=== PATIENT | female | born 2000 | race Caucasian/White ===

== ENCOUNTER 2022-06-09 10:09 | Emergency (ER) | payer MEDICAID | END 2022-06-09 14:25 | disposition home or self-care (01) | LOC: JD.ED 10:09 | DX: O20.9 Hemorrhage in early pregnancy, unspecified (principal); O99.332 Smoking (tobacco) complicating pregnancy, second trimester; F17.210 Nicotine dependence, cigarettes, uncomplicated; Z3A.17 17 weeks gestation of pregnancy; Z88.5 Allergy status to narcotic agent; Z86.16 Personal history of COVID-19 | CPT/HCPCS: 36415; 76815; 76815-26; 84702; 85025; 86900; 86901; 99283; 99284 ==

== ENCOUNTER 2022-11-12 07:25 | Inpatient (IN) | payer MEDICAID ==
[~2022-11-12 07:25] MED LIST: Bupivacaine 0.25% 10 ML SDV ONE
[2022-11-12] MEDS ORDERED: Ondansetron 4 MG/2 ML SDV IVPUSH PRN (07:56)
[2022-11-12] MEDS ORDERED: Oxytocin/Lactated Ringers 10 UNIT/1,000 ML BAG IV SCH (08:00)
[2022-11-12] MEDS: Lactated Ringers 1,000 ML IV SCH ×3 (09:00→16:32)
[2022-11-12] MEDS ORDERED: Sodium Chloride 0.9% 10 ML Syringe FLUSH SCH (09:00)
[2022-11-12] MEDS ORDERED: Bupivacaine/fentaNYL/NS 100 ML Bag EPIDUR PRN (09:05)
[2022-11-12] MEDS ORDERED: ePHEDrine 50 MG/ML SDV IVPUSH PRN (09:05)
[2022-11-12] MEDS ORDERED: diphenhydrAMINE 50 MG/ML SDV IVPUSH PRN (09:05)
[2022-11-12] MEDS ORDERED: fentaNYL 100 MCG/2 ML SDV EPIDUR PRN (09:05)
[2022-11-12] MEDS ORDERED: Docusate Sodium 100 MG Cap PO PRN (18:46)
[2022-11-12] MEDS ORDERED: Benzocaine/Menthol 20%-0.5% Spray 78 GM Cannister TOP PRN (18:46)
[2022-11-12] MEDS ORDERED: Witch Hazel Medicated Pads 40/Jar TOP PRN (18:46)
[2022-11-13] MEDS: Ibuprofen 600 MG Tab PO PRN ×2 (06:31→12:29)
[2022-11-13] MEDS: Acetaminophen 325 MG Tab PO PRN ×2 (12:30→20:49)
[2022-11-14] MEDS: Acetaminophen 325 MG Tab PO PRN (06:49)
== END 2022-11-14 14:38 | disposition home or self-care (01) | DRG 807 ==
LOC: JD.OBCHECK 07:25 → JD.OB 09:02 → OBSVTOIN 17:49 → JD.OB 17:49
PROVIDERS: ADMIT Obstetrics & Gynecology; ATTEND Obstetrics & Gynecology
PROC: 10E0XZZ Delivery of Products of Conception, External Approach (ICD-10-PCS; principal; 2022-11-12)
PROC: 0KQM0ZZ Repair Perineum Muscle, Open Approach (ICD-10-PCS; 2022-11-12)
PROC: 10907ZC Drainage of Amniotic Fluid, Therapeutic from Products of Conception, Via Natural or Artificial Opening (ICD-10-PCS; 2022-11-12)
PROC: 3E0R3BZ Introduction of Anesthetic Agent into Spinal Canal, Percutaneous Approach (ICD-10-PCS; 2022-11-12)
PROC: 00HU33Z Insertion of Infusion Device into Spinal Canal, Percutaneous Approach (ICD-10-PCS; 2022-11-12)
DX: O99.334 Smoking (tobacco) complicating childbirth (principal); Z37.0 Single live birth; Z3A.39 39 weeks gestation of pregnancy; F17.200 Nicotine dependence, unspecified, uncomplicated; Z86.16 Personal history of COVID-19; O77.0 Labor and delivery complicated by meconium in amniotic fluid; O70.1 Second degree perineal laceration during delivery; Z88.5 Allergy status to narcotic agent; Z88.2 Allergy status to sulfonamides; Z90.49 Acquired absence of other specified parts of digestive tract
CPT/HCPCS: 36415; 51702; 59025; 59409; 85025; 85027; 86592; A9270-GY; J2590; J3010; J3490; J7120

== ENCOUNTER 2025-08-17 07:00 | Inpatient (IN) | payer MEDICAID ==
[2025-08-17] MEDS ORDERED: Ondansetron 4 MG/2 ML SDV IVPUSH PRN (07:12)
[2025-08-17] MEDS ORDERED: Nalbuphine 10 MG/1 ML Vial IVPUSH PRN (07:12)
[2025-08-17] MEDS ORDERED: Oxytocin/0.9 % Sodium Chloride 30 UNIT/500 ML BAG IV SCH ×2 (07:15→17:54)
[2025-08-17 07:48] LABS: BASOPHILS ABSOLUTE AUTO 0.0 K/mm3 (0.0-0.2); BASOPHILS PERCENT AUTO 0.4 % (0.0-1.0); EOSINOPHILS ABSOLUTE AUTO 0.1 K/mm3 (0.0-0.4); EOSINOPHILS PERCENT AUTO 1.0 % (0.0-6.0); IMMATURE GRAN ABSOLUTE AUTO 0.09 K/mm3 (0.00-0.05); IMMATURE GRAN PERCENT AUTO 0.9 % (0.0-0.4); LYMPHOCYTES ABSOLUTE AUTO 2.1 K/mm3 (1.0-4.8); LYMPHOCYTES PERCENT AUTO 20.5 % (24.0-44.0); MEAN PLATELET VOLUME 9.1 fl (9.4-12.3); MONOCYTES ABSOLUTE AUTO 0.9 K/mm3 (0.0-0.8); MONOCYTES PERCENT AUTO 8.5 % (0.0-8.0); NEUTROPHILS ABSOLUTE AUTO 7.1 K/mm3 (1.8-7.7); NEUTROPHILS PERCENT AUTO 68.7 % (41.0-71.0); NRBC ABSOLUTE 0.00 (0.00-0.02); NRBC PERCENT 0.0 % (0.0-0.2); PLATELET COUNT,PLT 220 K/mm3 (150-400); RED BLOOD CELL COUNT 4.31 M/mm3 (4.10-5.30); WHITE BLOOD CELL COUNT,WBC 10.31 K/mm3 (3.9-11.3)
[2025-08-17] MEDS: Lactated Ringers 1,000 ML IV SCH (08:36)
[2025-08-17] MEDS: Oxytocin/0.9 % Sodium Chloride 30 UNIT/500 ML BAG IV SCH (08:38)
[2025-08-17] MEDS ORDERED: fentaNYL 100 MCG/2 ML SDV EPIDUR PRN (13:53)
[2025-08-17] MEDS ORDERED: diphenhydrAMINE 50 MG/ML SDV IVPUSH PRN (13:53)
[2025-08-17] MEDS ORDERED: ePHEDrine 50 MG/ML SDV IVPUSH PRN (13:53)
[2025-08-17] MEDS: Bupivacaine/fentaNYL/NS 100 ML Bag EPIDUR PRN (14:18)
[2025-08-17] MEDS ORDERED: Magnesium Hydroxide 400 MG/5 ML Susp 30 ML Cup PO PRN (17:54)
[2025-08-17] MEDS: Witch Hazel Medicated Pads 40/Jar TOP PRN (18:33)
[2025-08-17] MEDS: Benzocaine/Menthol 20%-0.5% Spray 78 GM Cannister TOP PRN (18:33)
[2025-08-18] MEDS: Prenatal Multivitamin with Calcium/Folic Acid/Iron Tab PO SCH (09:00)
== END 2025-08-18 16:45 | disposition home or self-care (01) | DRG 807 ==
LOC: JD.OB 07:00 → OBSVTOIN 15:56 → JD.OB 15:56
PROVIDERS: ADMIT Obstetrics & Gynecology; ATTEND Obstetrics & Gynecology
PROC: 10E0XZZ Delivery of Products of Conception, External Approach (ICD-10-PCS; principal; 2025-08-17)
PROC: 10907ZC Drainage of Amniotic Fluid, Therapeutic from Products of Conception, Via Natural or Artificial Opening (ICD-10-PCS; 2025-08-17)
PROC: 3E033VJ Introduction of Other Hormone into Peripheral Vein, Percutaneous Approach (ICD-10-PCS; 2025-08-17)
PROC: 0HQ9XZZ Repair Perineum Skin, External Approach (ICD-10-PCS; 2025-08-17)
PROC: 3E0R3BZ Introduction of Anesthetic Agent into Spinal Canal, Percutaneous Approach (ICD-10-PCS; 2025-08-17)
PROC: 00HU33Z Insertion of Infusion Device into Spinal Canal, Percutaneous Approach (ICD-10-PCS; 2025-08-17)
DX: O99.02 Anemia complicating childbirth (principal); Z37.0 Single live birth; D64.9 Anemia, unspecified; O70.0 First degree perineal laceration during delivery; Z3A.39 39 weeks gestation of pregnancy
CPT/HCPCS: 36415; 51702; 59025; 59409; 85025; 86592; 86850; 86900; 86901; A9270-GY; J3490; J7120; J7999